=== PATIENT | female | born 1985 | race Caucasian/White ===

== ENCOUNTER 2021-08-10 07:07 | Emergency (ER) | payer OTHER ==
--- NOTE | 2021-08-10 08:48 | RAD REPORT ---
EXAM DESCRIPTION: CT - Soft Tissue Neck W/Contr - 08/10/2021 8:34 am CLINICAL HISTORY: Swallowed foreign body, neck pain, pain with swallowing COMPARISON: No comparisons TECHNIQUE: During dynamic enhancement using 100 milliliters nonionic IV contrast, axial 5 millimeter thick images of the neck were obtained. All CT scans are performed using dose optimization technique as appropriate and may include automated exposure control or mA/KV adjustment according to patient size. FINDINGS: Intracranial portion the exam is unremarkable. No globe or orbital content abnormality. Ma stoid air cells are clear. Mucosal thickening or retention cyst is present in the right maxillary sin us. No acute sinus finding. No bony abnormalities are present. No nasopharyngeal mucosal abnormality. Parapharyngeal fat is normal. No soft palate or tongue base ab normality seen. No foreign body is identified. No esophageal wall thickening is identifiable. The laryngeal or vocal cord abnormality seen. Small nonspecific bilateral cervical lymph nodes are present. Right tonsil is enlarged relative to the left. Along the superior margin on the right there is a 6 mi llimeter rounded low-density focus. This finding is nonspecific. Tonsillitis with small peritonsillar abscess would be possible though this does not match with the provided history. Tonsillar enlargemen t would be possible if there was trauma from an ingested foreign body that is not evident on the exam ination. The parotid, submandibular and thyroid gland tissue show no significant findings. There are subcentim eter sized thyroid nodules. IMPRESSION: No foreign body is identified and no esophageal wall thickening or edema identified. Right tonsil is enlarged relative to the left tonsil with a 6 mm low-density focus in the superior as pect. Edema of the right tonsil is possible if there are risk trauma related to the foreign body annalisa stion. Tonsillitis with peritonsillar 6 mm abscess possible but does not match with provided history.
--- NOTE | 2021-08-10 10:26 | ER ---
Nurse's Notes [facility] Name: Mera Meyer Age: 36 yrs Sex: Female : 1985 Arrival Date: 08/10/2021 Time: 07:10 Bed 18 Private MD: Diagnosis: Dysphagia;Right tonsilar pillar swelling Presentation: 08/10 07:18 Chief complaint: Patient states: believes she swallowed a piece of plastic sherbet iw container last night, feels it in her throat, was seen at [facility] last night and was told she would have to be transferred somewhere else. Coronavirus screen: At this time, the client does not indicate any symptoms associated with coronavirus-19. Ebola Screen: Patient negative for fever greater than or equal to 101.5 degrees Fahrenheit, and additional compatible Ebola Virus Disease symptoms Patient denies exposure to infectious person. Patient denies travel to an Ebola-affected area in the 21 days before illness onset. No symptoms or risks identified at this time. Initial Sepsis Screen: Does the patient meet any 2 criteria? No. Patient's initial sepsis screen is negative. Does the patient have a suspected source of infection? No. Patient's initial sepsis screen is negative. Risk Assessment: Do you want to hurt yourself or someone else? Patient reports no desire to harm self or others. Onset of symptoms was August 09, 2021. 07:18 Method Of Arrival: Ambulatory iw 07:18 Acuity: MARY 3 iw Triage Assessment: 08:32 General: Appears in no apparent distress. Behavior is calm, cooperative. 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 - Social history:: Smoking status: Patient denies any tobacco usage or history of. Screenin:29 Abuse screen: Denies threats or abuse. Denies injuries from another. Nutritional meyer screening: No deficits noted. Tuberculosis screening: No symptoms or risk factors identified. Fall Risk None identified. Assessment: 08:29 Pain: Complains of pain in thyroid cartilage. EENT: Reports difficulty swallowing pt meyer reported having a piece of plastic stuck in throat. Vital Signs: 07:18 BP 122 / 99; Pulse 105; Resp 16; Pulse Ox 99% on R/A; Weight 93.89 kg; Height 5 ft. 9 iw in. (175.26 cm); 09:45 BP 125 / 72; Pulse 86; Resp 17; Pulse Ox 99% on R/A; meyer 07:18 Body Mass Index 30.57 (93.89 kg, 175.26 cm) ED Course: 07:10 Patient arrived in ED. kz 07:20 Triage completed. iw 07:21 Arm band placed on. iw 07:22 Sarahy Hernández, RN is Primary Nurse. meyer 07:22 Tao Thomas MD is Attending Physician. kdr 08:29 Patient has correct armband on for positive identification. Bed in low position. meyer 08:29 No provider procedures requiring assistance completed. Inserted saline lock: 20 gauge meyer in right antecubital area, using aseptic technique. 08:36 CT Soft Tissue Neck W/contr In Process Unspecified. EDMS 11:10 IV discontinued, intact, Pressure dressing applied. meyer Administered Medications: No medications were administered Outcome: 10:25 Discharge ordered by . kdr 11:10 Discharged to home ambulatory. meyer 11:10 Condition: good 11:10 Discharge instructions given to patient. 11:11 Patient left the ED. meyer Signatures: Dispatcher [employer] EDMS Tao Thomas MD MD kdr Juliet Cabral RN RN Sarahy Hernández RN RN ha Zapata, Kelly ksaravanan Corrections: (The following items were deleted from the chart) 07:20 07:20 PMHx: None; [facility]
--- NOTE | 2021-08-10 10:26 | EDPHYS ---
Physician Documentation [facility] Name: Mera Meyer Age: 36 yrs Sex: Female : 1985 Arrival Date: 08/10/2021 Time: 07:10 Bed 18 Private MD: ED Physician Tao Thomas HPI: 08/10 15:01 This 36 yrs old Female presents to ER via Ambulatory with complaints of Piece of kdr plastic stuck in throat. 15:01 The patient presents with sore throat, dysphagia, Patient states that she was eating kdr some ice cream when her cat around by her in such a way that the ice cream container was fractured into several pieces. She subsequently took a scoop of ice cream and one of the pieces of plastic from the container apparently were in the bite that she took. When she swallowed she felt a sharp pain in her throat. Subsequent to that, she felt that the foreign object may have lodged lower in her neck. She denies shortness of breath but only pain in her esophagus. Is not had this before she has no other significant medical issues.. The patient describes throat pain as intermittent, raw. Onset: The symptoms/episode began/occurred suddenly, just prior to arrival. Severity of symptoms: At their worst the symptoms were mild, in the emergency department the symptoms are unchanged. Modifying factors: The symptoms are alleviated by nothing, the symptoms are aggravated by nothing, Patient's oral intake status: good. Associated signs and symptoms: The patient has no apparent associated signs or symptoms. The patient has not experienced similar symptoms in the past. The patient has not recently seen a physician. 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 - Social history:: Smoking status: Patient denies any tobacco usage or history of. ROS: 15:01 Constitutional: Negative for fever, chills, and weight loss, Eyes: Negative for injury, kdr pain, redness, and discharge, ENT: Negative for injury, pain, and discharge, Cardiovascular: Negative for chest pain, palpitations, and edema, Respiratory: Negative for shortness of breath, cough, wheezing, and pleuritic chest pain, Abdomen/GI: Negative for abdominal pain, nausea, vomiting, diarrhea, and constipation, Back: Negative for injury and pain, : Negative for injury, bleeding, discharge, and swelling, MS/Extremity: Negative for injury and deformity, Skin: Negative for injury, rash, and discoloration, Neuro: Negative for headache, weakness, numbness, tingling, and seizure activity. Psych: Negative for depression, anxiety, suicide ideation, homicidal ideation, and hallucinations, Allergy/Immunology: Negative for hives, rash, and allergies, Endocrine: Negative for neck swelling, polydipsia, polyuria, polyphagia, and marked weight changes, Hematologic/Lymphatic: Negative for swollen nodes, abnormal bleeding, and unusual bruising. 15:01 Neck: Positive for Posterior pharynx pain. Exam: 15:01 Constitutional: This is a well developed, well nourished patient who is awake, alert, kdr and in no acute distress. Head/Face: Normocephalic, atraumatic. Eyes: Pupils equal round and reactive to light, extra-ocular motions intact. Lids and lashes normal. Conjunctiva and sclera are non-icteric and not injected. Cornea within normal limits. Periorbital areas with no swelling, redness, or edema. Neck: Trachea midline, no thyromegaly or masses palpated, and no cervical lymphadenopathy. Supple, full range of motion without nuchal rigidity, or vertebral point tenderness. No Meningismus. Chest/axilla: Normal chest wall appearance and motion. Nontender with no deformity. No lesions are appreciated. Cardiovascular: Regular rate and rhythm with a normal S1 and S2. No gallops, murmurs, or rubs. Normal PMI, no JVD. No pulse deficits. Respiratory: Lungs have equal breath sounds bilaterally, clear to auscultation and percussion. No rales, rhonchi or wheezes noted. No increased work of breathing, no retractions or nasal flaring. Abdomen/GI: Soft, non-tender, with normal bowel sounds. No distension or tympany. No guarding or rebound. No evidence of tenderness throughout. Back: No spinal tenderness. No costovertebral tenderness. Full range of motion. Skin: Warm, dry with normal turgor. Normal color with no rashes, no lesions, and no evidence of cellulitis. MS/ Extremity: Pulses equal, no cyanosis. Neurovascular intact. Full, normal range of motion. Neuro: Awake and alert, GCS 15, oriented to person, place, time, and situation. Cranial nerves II-XII grossly intact. Motor strength 5/5 in all extremities. Sensory grossly intact. Cerebellar exam normal. Normal gait. Psych: Awake, alert, with orientation to person, place and time. Behavior, mood, and affect are within normal limits. Vital Signs: 07:18 BP 122 / 99; Pulse 105; Resp 16; Pulse Ox 99% on R/A; Weight 93.89 kg; Height 5 ft. 9 iw in. (175.26 cm); 09:45 BP 125 / 72; Pulse 86; Resp 17; Pulse Ox 99% on R/A; meyer 07:18 Body Mass Index 30.57 (93.89 kg, 175.26 cm) iw MDM: 10:25 Patient medically screened. kdr 15:05 Data reviewed: vital signs, nurses notes, lab test result(s), radiologic studies. kdr Counseling: I had a detailed discussion with the patient and/or guardian regarding: the historical points, exam findings, and any diagnostic results supporting the discharge/admit diagnosis, lab results, radiology results, the need for outpatient follow up. ED course: I reviewed the radiology report with Dr. Cortés. We did not see any foreign body evidence nor any tissue changes which would be suggestive of a retained foreign body at this time. Subsequently I spoke with the patient reviewed this data with her as well. She indicated that she is actually doing well and without any problem swallowing and was relieved to know that we did not find any foreign body on the CT. She was discharged in good condition happy for the care that was provided and the plan for discharge and follow-up. 08/10 07:23 Order name: CT Soft Tissue Neck W/contr; Complete Time: 09:11 kdr Administered Medications: No medications were administered Disposition Summary: 08/10/21 10:25 Discharge Ordered Location: Home kdr Problem: new kdr Symptoms: have improved kdr Condition: Stable kdr Diagnosis - Dysphagia kdr - Right tonsilar pillar swelling kdr Followup: kdr - With: Private Physician - When: 2 - 3 days - Reason: If symptoms return, Further diagnostic work-up, Recheck today's complaints, Continuance of care, Re-evaluation by your physician Discharge Instructions: - Discharge Summary Sheet kdr - Dysphagia kdr Forms: - Medication Reconciliation Form kdr - Thank You Letter kdr Signatures: Dispatcher [employer] Tao Dominique MD MD kdr Williams, Irene, RN RN iw Au-Stager, Heather, RN RN ha Corrections: (The following items were deleted from the chart) 07:20 07:20 PMHx: None; [facility]
[2021-08-10 11:43] VITALS: O2SAT 99
[2021-08-10 11:47] VITALS: BP 125/72
== END 2021-08-10 11:11 | disposition home or self-care (01) ==
LOC: MERGE 07:07 → ER 07:07
DX: R13.10 Dysphagia, unspecified (principal); J35.1 Hypertrophy of tonsils
CPT/HCPCS: 70491; 99283; Q9967